=== PATIENT | female | born 1955 | race Caucasian/White ===

== ENCOUNTER 2016-08-20 19:39 | Emergency (ER) | payer OTHER ==
[2016-08-20 19:54] VITALS: BP 140/87
--- NOTE | 2016-08-20 21:43 | EDPHY ---
H & P Time Seen by Provider: 08/20/16 21:41 HPI/ROS: CHIEF COMPLAINT: Right foot pain. HISTORY OF PRESENT ILLNESS: The patient is a 60 y/o female complaining of right foot pain secondary to tripping while walking this afternoon. She has been able to bear weight, but with pain, since the injury. She denies other injuries, weakness, or paresthesias. Past Medical/Surgical History: GERD, ortho surgeries Social History: Nonsmoker Smoking Status: Never smoked Physical Exam: General Appearance: Alert, no distress Respiratory: No respiratory distress Cardiovascular: normal capillary refill in right foot Neurological: A&O, nonfocal, gait deferred Skin: Warm and dry, no rash Extremities: Right foot pain: tenderness, ecchymosis, and swelling over 5th metatarsal. Other extremities: Nontender, no pedal edema Psychiatric: Mood and affect normal Constitutional: Initial Vital Signs Temperature (C) 36.4 C 08/20/16 19:52 Heart Rate 74 08/20/16 19:52 Respiratory Rate 18 08/20/16 19:52 Blood Pressure 140/87 H 08/20/16 19:52 O2 Sat (%) 95 08/20/16 19:52 O2 Delivery Mode Room Air Allergies/Adverse Reactions: No Known Allergies Allergy (Unverified 08/20/16 19:54) Home Medications: Medication Instructions Recorded Omeprazole [Prilosec 20 mg] 20 mg PO DAILY 01/15/11 Simbrinza 1%-0.2% Eye Drops 2 drops EACHEYE TID 01/29/16 Calcium Carb W/Vit D [Calcium Carb 500 mg PO DAILY 01/30/16 W/Vit D 500/200 (*)] Cyanocobalamin [Vitamin B12 (*)] 1,000 mcg PO DAILY 01/30/16 Valsartan [Diovan (*)] 160 mg PO DAILY #30 tab 01/30/16 metFORMIN HCL [Glucophage 500 mg 1,000 mg PO BIDMEAL 01/30/16 (*)] Ipratropium 0.06% Nasal [Atrovent 2 sprays EACHNARE TID 08/20/16 0.06% Nasal (RX)] Triamcinolone Acetonide [Nasacort] 10.8 ml NS 08/20/16 Medical Decision Making - Diagnostics Imaging Results: Imaging Impressions Foot X-Ray 08/20/16 20:34 Impression: Minimally-displaced transverse fracture through the base of the 5th metatarsal. Imaging: Discussed imaging studies w/ office agent Radiologist ED Course/Re-evaluation: X-ray shows fracture of right 5th metatarsal. Discussed findings with the patient. She will be placed in a boot with referral to ortho and script for Picher. Return precautions given. She is comfortable with this plan. Departure - Departure Disposition: Home, Routine, Self-Care Clinical Impression: Fracture of fifth metatarsal bone of right foot Qualifiers: Encounter type: initial encounter Fracture type: closed Fracture alignment: nondisplaced Qualified Code(s): S92.354A - Nondisplaced fracture of fifth metatarsal bone, right foot, initial encounter for closed fracture Condition: Good Instructions: Foot Fracture in Adults (ED) Additional Instructions: 1. Take 400mg ibuprofen every 6-8 hours as needed for pain for the next 3-4 days. 2. Use Picher as prescribed if needed for pain not controlled by ibuprofen. 3. Wear boot until follow up with orthopedist. 4. Follow up with Dr. Llanes, orthopedist, in one week. 5. Return to the ED for significant worsening of pain. Referrals: Lakesha Khan PA [Primary Care Provider] - As per Instructions Bud Llanes MD [Medical Doctor] - 2-3 days, call for appt. Report Scribed for: Bethany Rao Report Scribed by: Christine Tejada Date of Report: 08/20/16 Time of Report: 21:47 Physician Review and Approval Statement: 08/20/16 21:47 Portions of this note were transcribed by a biomedical equipment specialist. I personally performed a history, physical exam, medical decision making, and confirmed accuracy of information the transcribed note.
[2016-08-20] MEDS ORDERED: HYDROCOD/APAP 5/325 PREPACK#6 BTL TAKEHOME ONE ×2 (21:52→21:53)
[2016-08-20] MEDS ORDERED: IBUPROFEN 600 MG TAB PO ONE (21:53)
[2016-08-20 22:28] VITALS: PULSE 67; RESP 16; TEMP 97.3; O2SAT 96
== END 2016-08-20 22:22 | disposition home or self-care (01) ==
DX: S92.354A Nondisplaced fracture of fifth metatarsal bone, right foot, initial encounter for closed fracture (principal); Z79.84 Long term (current) use of oral hypoglycemic drugs; W18.40XA Slipping, tripping and stumbling without falling, unspecified, initial encounter; Y99.8 Other external cause status; Y93.01 Activity, walking, marching and hiking
CPT/HCPCS: L4386

== ENCOUNTER 2017-07-09 18:00 | Emergency (ER) | payer BC, OTHER ==
[2017-07-09 18:09] VITALS: RESP 18
[2017-07-09] MEDS ORDERED: IPRATROPIUM/ALBUTEROL 3 ML DEYVIAL IH ONE ×2 (19:09→20:05)
--- NOTE | 2017-07-09 19:12 | EDPHY ---
H & P Time Seen by Provider: 07/09/17 18:54 HPI/ROS: CHIEF COMPLAINT: Cough x3 days HISTORY OF PRESENT ILLNESS: 61-year-old female with no history of chronic pulmonary disorder, arrives via private vehicle complaint 3 days of intermittently productive cough. Was seen at [facility] seen a today prescribed Tessalon Perles, doxycycline. She is in the ER stating that she needs "stronger cough medicine". No chest pain. No abdominal pain. No nausea or vomiting. No nuchal rigidity. No dyspnea . PRIMARY CARE PROVIDER: REVIEW OF SYSTEMS: A ten point review of systems was performed and is negative with the exception of the items mentioned in the HPI PAST MEDICAL & SURGICAL HISTORY: no chronic pulmonary disease SOCIAL HISTORY: Nonsmoker PHYSICAL EXAM (Prior to examination, patient consented to physical exam, hands were washed and my usual and customary physical exam procedures followed) 1) GENERAL: Well-developed, well-nourished, alert and oriented. Answering questions appropriately. Coughing.. 2) HEAD: Normocephalic, atraumatic 3) HEENT: Pupils equal, round, reactive to light bilaterally. Sclera anicteric. Nasopharynx, oropharynx, clear, no lesions. No tonsillar enlargement or exudate Ears bilaterally with normal tympanic membranes. 4) NECK: Full range of motion, no meningeal signs. 5) LUNGS: Clear auscultation bilaterally, no wheezes, no rhonchi, no retractions. 6) HEART: Regular rate and rhythm, no murmur, no heave, no gallop. 7) ABDOMEN: No guarding, no rebound, no focal tenderness, negative McBurney's, negative Vazquez's, negative Rovsing's, negative peritoneal sign, 8) MUSCULOSKELETAL: Moving all extremities, no focal areas of tenderness, no obvious trauma. No peripheral edema or discoloration. 9) BACK: No CVA tenderness, no midline vertebral tenderness, no fluctuance, no step-off, no obvious trauma, no visual or palpable abnormality. 10) SKIN: No rash, no petechiae. 11) Psychiatric: Patient is oriented X 3, there is no agitation. DIFFERENTIAL DIAGNOSIS: In no particular including but not limited to pneumothorax, pneumonia, bronchitis, PE Smoking Status: Former smoker Constitutional: Initial Vital Signs Temperature (C) 37.3 C 07/09/17 18:04 Heart Rate 86 07/09/17 18:04 Respiratory Rate 18 07/09/17 18:04 Blood Pressure 143/90 H 07/09/17 18:04 O2 Sat (%) 92 07/09/17 18:04 O2 Delivery Mode Room Air Allergies/Adverse Reactions: No Known Allergies Allergy (Verified 07/09/17 18:03) Home Medications: Medication Instructions Recorded Omeprazole [Prilosec 20 mg] 20 mg PO DAILY 01/15/11 Simbrinza 1%-0.2% Eye Drops 2 drops EACHEYE TID 01/29/16 Valsartan [Diovan (*)] 160 mg PO DAILY #30 tab 01/30/16 metFORMIN HCL [Glucophage 500 mg 1,000 mg PO BIDMEAL 01/30/16 (*)] Ipratropium 0.06% Nasal [Atrovent 2 sprays EACHNARE TID 08/20/16 0.06% Nasal (RX)] Triamcinolone Acetonide [Nasacort] 10.8 ml NS 08/20/16 Benzonatate [Tessalon Pearles] 07/09/17 MDM/Departure - MDM Imaging Results: Imaging Impressions Chest X-Ray 07/09/17 18:12 Impression: Stable negative chest.. Medications Given: Discontinued Medications Albuterol/Ipratropium (Duoneb) 3 ml IH EDNOW ONE Stop: 07/09/17 19:10 Last Admin: 07/09/17 19:32 Dose: 3 ml Albuterol/Ipratropium (Duoneb) 3 ml IH EDNOW ONE Stop: 07/09/17 20:06 Last Admin: 07/09/17 20:06 Dose: 3 ml Sodium Chloride (Ns) 1,000 mls @ 0 mls/hr IV ONCE ONE PRN Reason: Wide Open Stop: 07/09/17 20:04 Last Admin: 07/09/17 20:05 Dose: Not Given ED Course/Re-evaluation: 7:12 p.m. doubt PE. Discussed her x-ray showing no focal infiltrate. Will administer DuoNeb treatment as this may provide symptomatic relief. She is maintaining normal saturations at this time Care of patient under supervision of secondary supervising physician Dr Mishra 8:32 p.m.: Re-evaluation given DuoNeb x2, continues to maintain normal saturations. She feels subjectively improved however. Her cough has decreased. She feels comfortable being discharged. Given albuterol meter dose inhaler. - Depart Disposition: Home, Routine, Self-Care Clinical Impression: Acute bronchitis Qualifiers: Bronchitis organism: unspecified organism Qualified Code(s): J20.9 - Acute bronchitis, unspecified Condition: Good Instructions: Acute Bronchitis (ED) Additional Instructions: Return to the emergency department immediately for change in breathing habits, change in voice, change in swallowing habits, change in mental status, or any other symptoms that concern you. Take your medication as directed. Stand Alone Forms: Work Excuse Referrals: Barbara Coley MD [Primary Care Provider] - 2-3 days, call for appt.
[2017-07-09] MEDS ORDERED: IPRATROPIUM/ALBUTEROL 3 ML DEYVIAL ONE (20:02)
[2017-07-09] MEDS ORDERED: NS 1,000 ML IV ONE (20:03)
[2017-07-09] MEDS ORDERED: ALBUTEROL INH PREPACK MDI TAKEHOME ONE (21:02)
[2017-07-09 21:12] VITALS: BP 131/79; PULSE 77; TEMP 98.2; O2SAT 96
== END 2017-07-09 21:15 | disposition home or self-care (01) ==
DX: J20.9 Acute bronchitis, unspecified (principal); Z79.84 Long term (current) use of oral hypoglycemic drugs; Z87.891 Personal history of nicotine dependence

== ENCOUNTER 2018-03-11 05:36 | Emergency (ER) | payer BC ==
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
[2018-03-11] MEDS ORDERED: HYDROCOD/APAP 5/325 PREPACK#6 BTL TAKEHOME ONE (06:25)
[2018-03-11 06:54] VITALS: BP 142/75
== END 2018-03-11 07:02 | disposition home or self-care (01) ==
DX: S83.92XA Sprain of unspecified site of left knee, initial encounter (principal); G89.29 Other chronic pain
CPT/HCPCS: L1830

== ENCOUNTER 2018-07-14 05:57 | Emergency (ER) | payer BC ==
[2018-07-14 06:06] VITALS: BP 122/77
[2018-07-14] MEDS ORDERED: HYDROCOD/APAP 5/325 PREPACK#6 BTL TAKEHOME ONE (06:18)
--- NOTE | 2018-07-14 06:18 | EDPHY ---
H & P Stated Complaint: Posterior Left Knee Pain Time Seen by Provider: 07/14/18 06:08 HPI/ROS: Chief Complaint: Left knee pain HPI: 62-year-old woman with a history of osteoarthritis and chronic left knee pain is presenting with worsening pain in her left medial posterior knee. Patient denies any falls or injuries. She did take ibuprofen 2 hr ago with no significant relief. No numbness or weakness. No leg pain or swelling. No chest pain or shortness of breath. No periods of immobility. Symptoms are similar to prior knee pain in the past. No fevers or chills. No cough. Pain is worse with movement and ambulation, improves with rest. ROS: 10 systems were reviewed and were negative except those elements noted in the HPI. PMH: Osteoarthritis Social History: No smoking, no alcohol, no recreational drug use Family History: non-contributory Physical Exam: Gen: Awake, Alert, No Distress HEENT: Nose: no rhinorrhea Eyes: PERRLA, EOMI Mouth: Moist mucosa Neck: Supple, no JVD Ext: no edema, patient has tenderness along the medial collateral ligament and pain with stressing the medial collateral ligament. She is able to flex to 90 . Negative drawer sign. No popliteal masses or tenderness. Calf is soft and nontender. Calves are symmetrical. Skin: no rash Neuro: CN II-XII intact, Sensation grossly intact, Strength 5/5 in bilateral upper and lower extremities - Personal History Current Tetanus/Diphtheria Vaccine: Yes Current Tetanus Diphtheria and Acellular Pertussis (TDAP): Yes - Medical/Surgical History Hx Asthma: No Hx Chronic Respiratory Disease: No Hx Diabetes: No Hx Cardiac Disease: No Hx Renal Disease: No Hx Cirrhosis: No Hx Alcoholism: No Hx HIV/AIDS: No Hx Splenectomy or Spleen Trauma: No Other PMH: csection x2, ortho knee surgery, nose fracture, orthoscopic surgery, HTN,METFORMIN GERD - Social History Smoking Status: Former smoker Constitutional: Initial Vital Signs Temperature (C) 36.5 C 07/14/18 06:02 Heart Rate 62 07/14/18 06:02 Respiratory Rate 18 07/14/18 06:02 Blood Pressure 122/77 H 07/14/18 06:02 O2 Sat (%) 97 07/14/18 06:02 O2 Delivery Mode Room Air Allergies/Adverse Reactions: No Known Allergies Allergy (Verified 07/14/18 06:01) Home Medications: Medication Instructions Recorded Omeprazole [Prilosec 20 mg] 20 mg PO DAILY 01/15/11 Simbrinza 1%-0.2% Eye Drops 2 drops EACHEYE TID 01/29/16 Valsartan [Diovan (*)] 160 mg PO DAILY #30 tab 01/30/16 metFORMIN HCL [Glucophage 500 mg 1,000 mg PO BIDMEAL 01/30/16 (*)] Ipratropium 0.06% Nasal [Atrovent 2 sprays EACHNARE TID 08/20/16 0.06% Nasal (RX)] Triamcinolone Acetonide [Nasacort] 10.8 ml NS 08/20/16 Medical Decision Making ED Course/Re-evaluation: Patient is atraumatic knee pain along the medial aspect of her left knee. She has a history of chronic knee pain. No new injuries. They will think x-rays are indicated at this time. Will place her in a knee brace and have her follow up with her orthopedist in [place]. Will send her home with a prepack of oral analgesia. Departure - Departure Disposition: Home, Routine, Self-Care Clinical Impression: Knee pain Condition: Good Instructions: Knee Pain (ED), Knee Immobilizer (ED), Crutch Instructions (ED), Hydrocodone/Acetaminophen (By mouth) Additional Instructions: Do not take hydrocodone if you're driving. You may alternate acetaminophen with ibuprofen for pain. Follow up with her orthopedist in 2-3 days for further evaluation. Referrals: EVELYN BEDOYA [Other] - As per Instructions
== END 2018-07-14 06:37 | disposition home or self-care (01) ==
DX: M25.562 Pain in left knee (principal); G89.29 Other chronic pain; I10 Essential (primary) hypertension; Z79.899 Other long term (current) drug therapy
CPT/HCPCS: L1830

== ENCOUNTER 2018-08-24 19:08 | Emergency (ER) | payer BC ==
--- NOTE | 2018-08-24 19:21 | EDPHY ---
H & P Stated Complaint: abd pain, nausea, and diarrhea Time Seen by Provider: 08/24/18 19:20 HPI/ROS: CHIEF COMPLAINT: Abdominal pain, vomiting, loose stool HISTORY OF PRESENT ILLNESS: The patient presents the ED with complaints of epigastric pain, vomiting and loose stool. The patient has a history of gastritis, hiatal hernia and does suffer from chronic intermittent abdominal pain. The patient has been taking proton pump inhibitor at home. She is not taking any antinausea medications. She states that her pain is worsened with eating. She denies prior history of abdominal surgery. The patient denies any flank pain, dysuria or hematuria. The patient reports her pain is moderate to severe in nature. REVIEW OF SYSTEMS: A comprehensive 10 point review of systems is otherwise negative aside from elements mentioned in the history of present illness. Source: Patient Exam Limitations: No limitations - Personal History Current Tetanus/Diphtheria Vaccine: No Current Tetanus Diphtheria and Acellular Pertussis (TDAP): No - Medical/Surgical History Hx Asthma: No Hx Chronic Respiratory Disease: No Hx Diabetes: Yes Hx Cardiac Disease: No Hx Renal Disease: No Hx Cirrhosis: No Hx Alcoholism: No Hx HIV/AIDS: No Hx Splenectomy or Spleen Trauma: No Other PMH: csection x2, ortho knee surgery, nose fracture, orthoscopic surgery, HTN,METFORMIN GERD, hernia - Social History Smoking Status: Former smoker - Physical Exam Exam: General Appearance: Alert, appears uncomfortable Eyes: Pupils equal and round no pallor or injection ENT, Mouth: Mucous membranes moist Respiratory: There are no retractions, lungs are clear to auscultation Cardiovascular: Regular rate and rhythm Gastrointestinal: Moderate epigastric tenderness, mild right upper quadrant tenderness Neurological: 5/5 strength noted all 4 extremities Skin: Warm and dry, no rashes Musculoskeletal: Neck is supple nontender Extremities: symmetrical, full range of motion Psychiatric: Patient is oriented X 3, there is no agitation Constitutional: Initial Vital Signs Temperature (C) 36.5 C 08/24/18 19:09 Heart Rate 66 08/24/18 19:09 Respiratory Rate 16 08/24/18 19:09 Blood Pressure 174/112 H 08/24/18 19:09 O2 Sat (%) 99 08/24/18 19:09 O2 Delivery Mode Room Air Allergies/Adverse Reactions: shellfish derived Allergy (Verified 08/24/18 19:13) Home Medications: Medication Instructions Recorded Omeprazole [Prilosec 20 mg] 20 mg PO DAILY 01/15/11 Simbrinza 1%-0.2% Eye Drops 2 drops EACHEYE TID 01/29/16 Valsartan [Diovan (*)] 160 mg PO DAILY #30 tab 01/30/16 metFORMIN HCL [Glucophage 500 mg 1,000 mg PO BIDMEAL 01/30/16 (*)] Ipratropium 0.06% Nasal [Atrovent 2 sprays EACHNARE TID 08/20/16 0.06% Nasal (RX)] Triamcinolone Acetonide [Nasacort] 10.8 ml NS 08/20/16 Medical Decision Making ED Course/Re-evaluation: The patient presents the ED with abdominal pain, nausea and vomiting with a history of chronic gastritis. The patient has and benign abdominal examination with no significant right upper quadrant tenderness. The patient was treated with IV fluids, Zofran and a GI cocktail. She had 3 serial examinations in the ED by myself over a 2 hr period and had significant improvement of her symptoms. I do not feel that ultrasound or CT scanning is indicated at this point time she is scheduled to follow up with her basket bottom machine operator this Wednesday. The patient will be discharged home with a prescription for Zofran. She is advised to use Maalox as needed. She is given customary abdominal pain aftercare instructions. The patient does have a history of chronic hyponatremia. She does have a history of excess water intake. I do not feel that her hyponatremia today warrants hospitalization. Differential Diagnosis: Differential diagnosis considered includes peptic ulcer disease, gastritis, cholecystitis, pancreatitis, gastroparesis - Data Points Laboratory Results: Laboratory Results 08/24/18 19:35 08/24/18 19:35 08/24/18 08/24/18 19:35 19:35 WBC 9.43 10^3/uL 10^3/uL (3.80-9.50) RBC 4.04 10^6/uL L 10^6/uL (4.18-5.33) Hgb 12.0 g/dL L g/dL (12.6-16.3) Hct 34.5 % L % (38.0-47.0) MCV 85.4 fL fL (81.5-99.8) MCH 29.7 pg pg (27.9-34.1) MCHC 34.8 g/dL g/dL (32.4-36.7) RDW 13.0 % % (11.5-15.2) Plt Count 336 10^3/uL 10^3/uL (150-400) MPV 8.8 fL fL (8.7-11.7) Neut % (Auto) 61.0 % % (39.3-74.2) Lymph % (Auto) 27.1 % % (15.0-45.0) [place] % (Auto) 9.5 % % (4.5-13.0) Eos % (Auto) 1.6 % % (0.6-7.6) Baso % (Auto) 0.4 % % (0.3-1.7) Nucleat RBC Rel Count 0.0 % % (0.0-0.2) Absolute Neuts (auto) 5.74 10^3/uL 10^3/uL (1.70-6.50) Absolute Lymphs (auto) 2.56 10^3/uL 10^3/uL (1.00-3.00) Absolute Monos (auto) 0.90 10^3/uL H 10^3/uL (0.30-0.80) Absolute Eos (auto) 0.15 10^3/uL 10^3/uL (0.03-0.40) Absolute Basos (auto) 0.04 10^3/uL 10^3/uL (0.02-0.10) Absolute Nucleated RBC 0.00 10^3/uL 10^3/uL (0-0.01) Immature Gran % 0.4 % % (0.0-1.1) Immature Gran # 0.04 10^3/uL 10^3/uL (0.00-0.10) Sodium 121 mEq/L L mEq/L (135-145) Potassium 3.1 mEq/L L mEq/L (3.5-5.2) Chloride 89 mEq/L L mEq/L (97-110) Carbon Dioxide 23 mEq/l mEq/l (22-31) Anion Gap 9 mEq/L mEq/L (6-14) BUN 12 mg/dL mg/dL (7-23) Creatinine 0.6 mg/dL mg/dL (0.6-1.0) Estimated GFR > 60 Glucose 98 mg/dL mg/dL (70-100) Calcium 8.7 mg/dL mg/dL (8.5-10.4) Total Bilirubin 0.4 mg/dL mg/dL (0.1-1.4) Conjugated Bilirubin 0.2 mg/dL mg/dL (0.0-0.5) Unconjugated Bilirubin 0.2 mg/dL mg/dL (0.0-1.1) AST 35 IU/L IU/L (14-46) ALT 48 IU/L IU/L (9-52) Alkaline Phosphatase 91 IU/L IU/L (38-126) Total Protein 6.3 g/dL g/dL (6.3-8.2) Albumin 3.8 g/dL g/dL (3.5-5.0) Lipase 91 IU/L IU/L (23-300) Medications Given: Discontinued Medications Al Hydroxide/Mg Hydroxide (Maalox Susp) 30 ml PO ONCE ONE Stop: 08/24/18 20:27 Last Admin: 08/24/18 20:35 Dose: 30 ml Hyoscyamine Sulfate (Levsin, Hyomax-Sl) 0.25 mg PO ONCE ONE Stop: 08/24/18 20:27 Last Admin: 08/24/18 20:35 Dose: 0.25 mg Sodium Chloride (Ns) 1,000 mls @ 0 mls/hr IV EDNOW ONE; Wide Open PRN Reason: Protocol Stop: 08/24/18 19:32 Last Admin: 08/24/18 19:51 Dose: 1,000 mls Sodium Chloride (Ns) 1,000 mls @ 0 mls/hr IV EDNOW ONE; Wide Open PRN Reason: Protocol Stop: 08/24/18 20:10 Last Admin: 08/24/18 20:15 Dose: 1,000 mls Lidocaine (Lidocaine 2% Viscous) 15 ml PO ONCE ONE Stop: 08/24/18 20:27 Last Admin: 08/24/18 20:35 Dose: 15 ml Ondansetron HCl (Zofran) 4 mg IVP EDNOW ONE Stop: 08/24/18 19:32 Last Admin: 08/24/18 19:51 Dose: 4 mg Departure - Departure Disposition: Home, Routine, Self-Care Clinical Impression: Abdominal pain Qualifiers: Abdominal location: epigastric Qualified Code(s): R10.13 - Epigastric pain Condition: Good Instructions: Acute Abdominal Pain (ED) Additional Instructions: Sometimes we are unable to diagnose an obvious cause of abdominal pain in the Emergency Department. Based upon our evaluation today, I believe your symptoms are secondary to your chronic gastritis.. Because more serious conditions can be difficult to diagnose early in the course of their presentation, we ask that you return to the Emergency Department in 8-12 hours for a recheck if you are still having pain. This is necessary to exclude the development of a more serious condition such as appendicitis or other intra-abdominal emergency. In the event your pain markedly increases before that time or you develop intractable vomiting or fever return to the Emergency Department immediately. Zofran as needed for nausea and vomiting Use Maalox as needed for pain and upset stomach Please avoid drinking excess water. Please try and include electrolytes an your oral liquids. I do recommend increasing your salt intake slightly. Please have your primary care provider recheck your sodium level in the next 1- 2 weeks. Referrals: EVELYN BEDOYA [Other] - As per Instructions
[2018-08-24] MEDS ORDERED: ONDANSETRON 4 MG/2 ML VIAL ONE (19:31)
[2018-08-24] MEDS: ONDANSETRON 4 MG/2 ML VIAL IVP ONE (19:51)
[2018-08-24] MEDS: NS 1,000 ML IV ONE ×2 (19:51→20:15)
[2018-08-24 19:57] LABS: PLATELET COUNT 336 10^3/uL (150-400)
[2018-08-24] MEDS: LIDOCAINE 2% VISCOUS 15 ML UDCUP PO ONE (20:35)
[2018-08-24] MEDS: MAG HYDROX/AL HYDROX/SIMETH 30 ML UDCUP PO ONE (20:35)
[2018-08-24] MEDS: HYOSCYAMINE SULFATE 0.125 MG TAB PO ONE (20:35)
[2018-08-24 21:09] VITALS: BP 156/88
== END 2018-08-24 21:05 | disposition home or self-care (01) ==
DX: R10.13 Epigastric pain (principal); R11.10 Vomiting, unspecified; R19.5 Other fecal abnormalities; E86.9 Volume depletion, unspecified
CPT/HCPCS: 96374; J2405

== ENCOUNTER 2018-10-14 06:19 | Emergency (ER) | payer BC | END 2018-10-14 08:23 | disposition home or self-care (01) ==